=== PATIENT | female | born 1990 | race Caucasian/White ===

== ENCOUNTER 2019-01-15 12:11 | Outpatient (CLI) | payer MEDICAID ==
[~2019-01-15] VITALS: Ht 162.6 cm; Wt 57.4 kg
[~2019-01-15 12:11] MED LIST: FLUO20CA38 PO; LAMO100T83 PO; PREN-6 PO
[2019-01-15 12:29] VITALS: BP 111/54; PULSE 71; Ht 162.6 cm; Wt 57.4 kg
[2019-01-15] MEDS ORDERED: LACTATED RINGER'S 1,000 ML IV SCH (13:30)
--- NOTE | 2019-01-15 14:11 | PN ---
Triage Information Date/Time 01/15/19 Reason for visit: Abd/pelvic pain Weeks of Gestation 24w2w /Para Diabetes: none Hypertention: none Additional information no other subjective symptoms Objective Vital Signs Date Temp Pulse Resp B/P (MAP) Pulse Ox O2 O2 Flow FiO2 Time Delivery Rate 01/15/19 97.8 71 111/54 12:29 (73) Contractions: None Results/Medications Results 24 hrs Laboratory Tests Test 01/15/19 12:20 Urine Color JENNIFER Urine Clarity TURBID A Urine pH 6.0 Urine Specific [place] 1.024 Urine Ketones TRACE A Urine Nitrite NEGATIVE Urine Bilirubin NEGATIVE Urine Urobilinogen 1+ H Urine Leukocyte Esterase 2+ H Urine Microscopic RBC 41 H Urine Microscopic WBC 35 H Urine Squamous Epithelial Cells MANY A Urine Bacteria FEW A Urine Mucus FEW A Urine Hemoglobin 2+ H Urine Glucose NEGATIVE Urine Total Protein 3+ H Medications Current Medications Lactated Ringer's 1,000 ml @ 250 mls/hr Q4H IV Last administered on 01/15/19at 13:20; Admin Dose 250 MLS/HR; Start 01/15/19 at 13:30 Imaging Results CVL 3.3 COURTNEY 18 Disposition: Discharge Assessment/Plan A IUP 22w4d abdominal pain ( ligament pain) UTI P discharge home Rx macrobid BID #20 increase fluid intake avoid sudden movement or heavy lifting BILL COATES MD Jan 15, 2019 14:11
[2019-01-15] MEDS ORDERED: SOD CHLORIDE 0.9% 1,000 ML IV SCH (14:30)
[2019-01-15] MEDS ORDERED: CEFTRIAXONE 1 GM/50 ML (PMX) 50 ML IVPB ONE (14:30)
--- NOTE | 2019-01-15 15:13 | TRIAGE ---
OB Triage Datetime Report Generated by CPN: 01/15/2019 15:13 Datetime: 01/15/2019 14:55 Heart Rate FHR Baseline Rate: 135 Monitor Mode: External US Comments: x 1 minute Datetime: 01/15/2019 14:54 Stage of : OB Triage Datetime: 01/15/2019 14:31 Labor Evaluation Frequency: 0 Monitor Mode: External Pattern: Normal: <= 5 Contractions in 10 Minutes Resting Tone [place]: Relaxed Comments: REMOVED DUE TO GESTATIONAL AGE Pain Assessment Pain Scale: 0 Pain Presence: None/Denies Pain Type: N/A Pain Goal: 3 Pain Relief Measures: Comfort Measures Datetime: 01/15/2019 13:48 Stage of : OB Triage Datetime: 01/15/2019 13:30 Labor Evaluation Frequency: 0 Monitor Mode: External Pattern: Normal: <= 5 Contractions in 10 Minutes Resting Tone [place]: Relaxed Comments: REMOVED DUE TO GESTATIONAL AGE Pain Assessment Pain Scale: 0 Pain Presence: None/Denies Pain Type: N/A Pain Goal: 3 Pain Relief Measures: Comfort Measures Datetime: 01/15/2019 13:07 Stage of : OB Triage Datetime: 01/15/2019 12:41 Stage of : OB Triage Datetime: 01/15/2019 12:26 Stage of : OB Triage Assessment Type: Triage Maternal Assessment Level of Consciousness: Fully Conscious DTR's/Clonus: DTRs 2+; No Clonus Headache: Denies Blurred Vision: No Respiratory Effort: Unlabored; Regular Rhythm; Equal Expansion Breath Sounds, Left: Clear and Equal Breath Sounds, Right: Clear and Equal Nausea/Vomiting: Denies RUQ Epigastric Pain: Denies Facial Edema: None Temperature Route: Axillary Fall Risk Assessment History of Falling: (0) No Secondary Diagnosis: (0) No Ambulatory Aid: (0) Bedrest/Nurse Assist IV Therapy: (0) No Gait: (0) Normal/Bedrest/Immobile Labor Evaluation Frequency: 0 Monitor Mode: External Pattern: Normal: <= 5 Contractions in 10 Minutes Resting Tone [place]: Relaxed Heart Rate FHR Baseline Rate: 135 Monitor Mode: External US Variability: Moderate 6-25 bpm Decelerations: None Category: Category I Pain Assessment Pain Scale: 5 Pain Presence: Intermittent Pain Type: Cramping Pain Location: Abdomen Pain Goal: 3 Pain Relief Measures: Comfort Measures Datetime: 01/15/2019 12:23 Time of Arrival: 01/15/2019 12:05 EGA: 24.2 Arrived By: Ambulatory Arrived From: Home Chief Complaint: C/O ABDOMINAL PAIN X 5 DAYS AGO THAT IS INTERMITTENT, DENIES BLEEDING OR LEAKING Movement: Present Contractions: Denies/Absent Rupture of Membranes: Denies Vaginal Bleeding: None Vaginal Discharge: Denies Recent Sexual Intercouse: Denies Abdominal Trauma: Not Applicable Patient Complaints: Cramping Time Provider Notified: 01/15/2019 12:40 Provider Notified: NIDIA Initial Plan: MONITOR, COURTNEY, CL, U/A C_S, IV HYDRATION Datetime: 11/02/2018 20:09 EGA: 13.5 Datetime: 11/02/2018 20:05 Fall Score: 0 Fall Risk Score Definition: No Risk: No action required
== END 2019-01-15 15:15 | disposition home or self-care (01) ==
LOC: OBT 12:11 → L-D 12:11 → OBT 15:15
PROVIDERS: ATTEND Obstetrics & Gynecology
DX: O23.42 Unspecified infection of urinary tract in pregnancy, second trimester (principal); O26.892 Other specified pregnancy related conditions, second trimester; R10.9 Unspecified abdominal pain; Z3A.24 24 weeks gestation of pregnancy
CPT/HCPCS: 36415; 76815; 76817; 81001; 87086; J0696; J7030; J7120; Z7500; G0463

== ENCOUNTER 2019-05-08 11:57 | Inpatient (IN) | payer OTHER ==
[~2019-05-08] VITALS: Ht 162.6 cm; Wt 66.8 kg
[2019-05-08 11:59] VITALS: Ht 162.6 cm; Wt 66.8 kg
[2019-05-08 12:09] VITALS: BP 145/81; PULSE 70; RESP 18
[2019-05-08] MEDS ORDERED: AMPICILLIN 2 GM/NS (PMX) 100 ML IV ONE (12:30)
[2019-05-08] MEDS ORDERED: MISOPROSTOL 200 MCG TAB PR PRN (12:30)
[2019-05-08] MEDS ORDERED: BUTORPHANOL 2 MG INJ IV PRN (12:30)
[2019-05-08] MEDS ORDERED: OXYTOCIN 30 UNITS/LR 500 ML IV PRN (12:30)
[2019-05-08] MEDS ORDERED: LIDOCAINE 1% (MPF) 30 ML INJ INJ PRN (12:30)
[2019-05-08] MEDS ORDERED: LACTATED RINGER'S 500 ML IV SCH (12:30)
[2019-05-08] MEDS ORDERED: IBUPROFEN 600 MG TAB PO PRN (12:30)
[2019-05-08] MEDS ORDERED: OXYTOCIN 30 UNITS/LR 500 ML IV SCH ×3 (12:30→22:30)
[2019-05-08] MEDS ORDERED: CARBOPROST 250 MCG INJ IM PRN (12:30)
[2019-05-08] MEDS ORDERED: METHYLERGONOVINE 0.2 MG INJ IM PRN (12:30)
[2019-05-08] MEDS ORDERED: FENTAnyl 2MCG/ML-ROPIV 0.2% 100 ML ONE (13:10)
[2019-05-08] MEDS ORDERED: LACTATED RINGER'S 1,000 ML IV SCH ×2 (13:28→14:30)
--- NOTE | 2019-05-08 13:55 | PREAC ---
Date/Time of Note Date/Time of Note DATE: 05/08/19 TIME: 13:53 Anesthesia Eval and Record Evaluation Time Pre-Procedure Interview DATE: 05/08/19 TIME: 13:53 Age 28 Sex female NPO: 8 hrs Preoperative diagnosis Labor Pain Planned procedure Labor Epidural Past Medical History Past Medical History: Includes Heme: Anemia : : (2), Para: (0), Gestational age: (39) Surgery & Anesthesia Issues No known issue Meds Anticoagulation: No Beta Cortez within 24 hr: No Reason Beta Cortez not given: Pt. not on B-Cortez Reported Medications Lamotrigine* (Lamictal*) 100 Mg Tablet, 100 MG PO BID, TAB 11/02/18 Fluoxetine Hcl* (Prozac*) 20 Mg Capsule, 20 MG PO BID, CAP 11/02/18 Vits #93-Iron Fum-FA ( Formula) 1 Each Tablet, 1 TAB PO DAILY, TAB 11/02/18 Current Medications Ampicillin 50 ml @ 100 mls/hr Q4H IV ; Start 05/08/19 at 16:30 Butorphanol Tartrate (Stadol) 2 mg Q2H PRN IV .PAIN SCALE 6-10; Start 05/08/19 at 12:30 Lidocaine (Xylocaine 1% (Mpf)) 30 ml ONCE PRN INJ .EPISIOTOMY; Start 05/08/19 at 12:30 Oxytocin/Lactated Ringer's 500 ml @ 500 mls/hr ONCE POST IV ; Start 05/08/19 at 12:30 Oxytocin/Lactated Ringer's 500 ml @ 125 mls/hr POST IV ; Start 05/08/19 at 12:30 Ibuprofen (Motrin) 600 mg ONCE PRN PO .PAIN 1-5; Start 05/08/19 at 12:30 Oxytocin/Lactated Ringer's 500 ml @ 0 mls/hr ONCE PRN IV .VAGINAL BLEEDING; Start 05/08/19 at 12:30 Methylergonovine Maleate (Methergine) 0.2 mg ONCE PRN IM .VAGINAL BLEEDING; Start 05/08/19 at 12:30 Carboprost Tromethamine (Hemabate) 250 mcg ONCE PRN IM .VAGINAL BLEEDING; Start 05/08/19 at 12:30 Misoprostol (Cytotec) 1,000 mcg ONCE PRN [place] .VAGINAL BLEEDING; Start 05/08/19 at 12:30 Lactated Ringer's 500 ml @ 125 mls/hr Q4H IV Last administered on 05/08/19at 13: 28; Admin Dose 125 MLS/HR; Start 05/08/19 at 12:30 Meds reviewed: Yes Allergies Coded Allergies: No Known Allergy (Unverified , 05/08/19) Allergies Reviewed: Yes Labs/Studies Labs Reviewed: Reviewed by anesthesiologist Result Diagram: 05/08/19 1215 05/08/19 1215 Laboratory Tests 05/08/19 12:15 Blood Bank Test 05/08/19 12:15 Antibody Screen NEGATIVE Blood Type B POSITIVE Rh Immune Globulin Candidate NO test: Positive Studies: ECG (n/a), CXR (n/a) Pre-procedure Exam Last vitals Vital Signs Date Temp Pulse Resp B/P (MAP) Pulse Ox O2 O2 Flow FiO2 Time Delivery Rate 05/08/19 97.5 70 18 145/81 Room Air 12:09 (102) Airway: Adequate mouth opening, Adequate thyromental dist Mallampati: Mallampati II Teeth: Normal Lung: Normal Heart: Normal ASA Physical Status ASA physical status: 2 Emergency: None Planned Anesthetic Neuraxial: Epidural Planned Pain Management Epidural Pre-operative Attestations Prior to commencing anesthesia and surgery, the patient was re-evaluated, there was verification of: *The patient's identity *The results of appropriate recent lab work and preoperative vital signs *The above evaluation not changing prior to induction *Anesthetic plan, risk benefits, alternative and complications discussed with patient/family; questions answered; patient/family understands, accepts and wishes to proceed. NICOL KAPOOR MD May 08, 2019 13:55
[2019-05-08] MEDS ORDERED: NALOXONE (0.4 MG/ML) INJ IV PRN (14:00)
--- NOTE | 2019-05-08 14:01 | PAC ---
Date/Time of Note Date/Time of Note DATE: 05/08/19 TIME: 14:01 Post-Anesthesia Notes Post-Anesthesia Note Last documented vital signs Vital Signs Date Temp Pulse Resp B/P (MAP) Pulse Ox O2 O2 Flow FiO2 Time Delivery Rate 05/08/19 97.5 70 18 145/81 100 Room Air 13:09 (102) Activity: WNL Respiratory function: WNL Cardiovascular function: WNL Mental status: Baseline Pain reasonably controlled: Yes Hydration appropriate: Yes Nausea/Vomiting absent: Yes NICOL KAPOOR MD May 08, 2019 14:01
[2019-05-08] MEDS ORDERED: MAGNESIUM SULFATE 4 GM/100 ML 100 ML IV SCH (16:30)
[2019-05-08] MEDS ORDERED: CA GLUCONATE (GM) 10% 10ML INJ IV PRN (16:30)
[2019-05-08] MEDS ORDERED: ONDANSETRON 4 MG INJ ONE (16:31)
[2019-05-08] MEDS ORDERED: MAGNESIUM SULFATE 4 GM/100 ML 100 ML ONE (16:31)
[2019-05-08] MEDS: ONDANSETRON 4 MG INJ IV PRN ×2 (16:39→22:14)
[2019-05-08] MEDS: MAGNESIUM SULFATE 20 GM/500 ML 500 ML IV SCH (17:08)
[2019-05-08] MEDS: AMPICILLIN 1 GM/NS (PMX) 50 ML IV SCH ×2 (17:48→21:16)
[2019-05-08] MEDS: FENTAnyl 2MCG/ML-ROPIV 0.2% 100 ML BAG EPI SCH (18:59)
[2019-05-08] MEDS ORDERED: MINERAL OIL LIGHT 10 ML VIAL TOP ONE (21:00)
[2019-05-08] MEDS ORDERED: ACETAMINOPHEN 1000MG/100ML IV 100 ML IVPB ONE (22:30)
[2019-05-08] MEDS ORDERED: METOCLOPRAMIDE 10 MG INJ IV PRN (23:00)
[2019-05-08] MEDS ORDERED: PROMETHAZINE 12.5 MG SUPP PR PRN (23:00)
[2019-05-09] MEDS: FENTAnyl 2MCG/ML-ROPIV 0.2% 100 ML BAG EPI SCH (00:27)
[2019-05-09] MEDS: AMPICILLIN 1 GM/NS (PMX) 50 ML IV SCH (01:30)
[2019-05-09] MEDS ORDERED: CEFAZOLIN 2 GM/50 ML (PMX) 50 ML IVPB ONE (03:00)
[2019-05-09] MEDS ORDERED: LACTATED RINGER'S 1,000 ML IV* SCH (03:38)
[2019-05-09] MEDS ORDERED: OXYTOCIN 30 UNITS/LR 500 ML IV SCH (03:38)
--- NOTE | 2019-05-09 03:38 | HP ---
Date/Time of Note Date/Time of Note DATE: 05/09/19 TIME: 03:32 OB - History Hx of Present Free Text/Dictation 28-year-old 2 para 0 at 40 weeks and 4 days of gestation with estimated date of delivery May 05, 2019 Patient presents in active labor with regular contractions She reports positive movement, denies vaginal bleeding or leaking fluid GBS status is positive Medical history significant for the depression and history of opioids addiction Estimated Due Date: May 05, 2019 : 2 Para: 0 Care: Good Care Obstetrical Complications: None Medical Complications: None Past Family/Social History * Past Medical, Surgical, Family and Obstetric Histories reviewed from chart. OB Admission Exam Vital Signs Vital Signs Vital Signs Date Temp Pulse Resp B/P (MAP) Pulse Ox O2 O2 Flow FiO2 Time Delivery Rate 05/08/19 97.5 70 18 145/81 Room Air 12:09 (102) Physical Exam HEENT: WNL Heart: Rhythm Normal Lungs: Clear, Equal Abdomen: WNL Extremities: Normal Reflexes: Normal Cervical Dilatation: 3cm Effacement: 100% Station: -1 Membranes: Intact Heart Rate: 140's Accelerations: Accelerations Present Decelerations: No Decelerations Varibility: Moderate Contractions on Admission: < 5 Minutes Apart Intensity: Moderate Last 72 hours Lab Results CBC & BMP 05/08/19 12:15 Liver Function Test 05/08/19 12:15 Alanine Aminotransferase (ALT/SGPT) 23 Albumin 2.9 L Alkaline Phosphatase 237 H Aspartate Amino Transf (AST/SGOT) 41 Direct Bilirubin 0.00 Total Protein 6.2 Magnesium Level Test 05/08/19 17:42 05/09/19 00:45 Magnesium Level 4.1 H 7.8 #*H PROCEDURE: US OB. CLINICAL INDICATION: Size and dates , labor pain TECHNIQUE: Multiple sonographic images of the pelvis and gravid uterus were obtained. The images were reviewed on a PACS workstation. COMPARISON: No prior studies are available for comparison. FINDINGS: Gestation: Single live intrauterine gestation. Cardiac activity: 131 beats per minute. Presentation: Vertex. Placenta: Location: Fundal Appearance: No previa or abruption. Measurements: Head measurements not obtained due to position . AC = 32.7 cm, 36 weeks and 4 days FL = 7.3 cm, 37 weeks and 3 days Gestational Age: AUA estimated gestational age: 37 weeks 0 days LMP estimated gestational age: 40 weeks 3 days AUA estimated date of delivery: 05/29/19 The EFW = 3093 g, 10.1%ile based on LMP age. RPTAT: AA IMPRESSION: Single live intrauterine gestation of 37 weeks 0 days by ultrasound criteria. Smaller than clinical age by approximately 3 weeks. However limited measurement due to position. .Josh Guerra MD, MD Date Time Electronically viewed and signed by .Josh Guerra MD, MD on 05/08/2019 2 2:45 .S/ CC: ALEN DIAZ MD [phone] OB Assessment/Plan Reason for admission: active labor Plan: Expectant Management Other plan: Admit to labor and delivery Antibiotics for GBS prophylaxis Pain meds as needed Copies To: CC: BC JACOB MD ; ALEN DIAZ MD May 09, 2019 03:38
--- NOTE | 2019-05-09 03:41 | LDN ---
Date/Time of Note Date/Time of Note DATE: 05/09/19 TIME: 03:39 Delivery Summary Weeks of Gestation Full-term Placenta Delivered: Spontaneously Meconium: Thick Episiotomy: Yes Laceration repair: Medial episiotomy repaired with 2-0 Vicryl suture Anesthesia type: Epidural Estimated blood loss: 100 Sponge & Needle done & correct: Yes All needle counts correct: Yes Any foreign bodies felt in the: No Delivery Information Sex Sex: female Apgars 1 Minute: 8 5 Minute: 9 Suctioning Nose & mouth suctioned at beatris: Yes Delee suction performed: Yes Umbilical Cord Umbilical cord with: 3 Vessels Cord presentations: no nuchal cord Cord Blood was obtained: Yes Mother & Baby Disposition Disposition Baby's weight 6 pounds 7 ounces/ 2910 g Mom & Baby to Maternity; Good: Yes Baby to NICU: No Copies To: CC: BC JACOB MD ; ALEN DIAZ MD May 09, 2019 03:41
[2019-05-09] MEDS ORDERED: METHYLERGONOVINE 0.2 MG INJ IM PRN (04:00)
[2019-05-09] MEDS ORDERED: ONDANSETRON 4 MG INJ IV PRN (04:00)
[2019-05-09] MEDS ORDERED: BENZOCAINE 20% 56 ML SPRAY TOP PRN (04:00)
[2019-05-09] MEDS ORDERED: MAGNESIUM HYDROXIDE 30ML CUP PO PRN (04:00)
[2019-05-09] MEDS ORDERED: WITCH HAZEL/GLYCERIN PAD PR PRN (04:00)
[2019-05-09] MEDS ORDERED: CARBOPROST 250 MCG INJ IM PRN (04:00)
[2019-05-09] MEDS ORDERED: OXYTOCIN 30 UNITS/LR 500 ML IV PRN (04:00)
[2019-05-09] MEDS ORDERED: DIBUCAINE 1% 30 GM OINT TOP PRN (04:00)
[2019-05-09] MEDS ORDERED: ACETAMINOPHEN 325 MG TAB PO PRN ×2 (04:00)
[2019-05-09] MEDS ORDERED: SENNA/DOCUSATE NA (8.6MG/50MG) TAB PO PRN (04:00)
[2019-05-09] MEDS ORDERED: LANOLIN HPA 1 PKT TOP PRN (04:00)
[2019-05-09] MEDS ORDERED: MISOPROSTOL 200 MCG TAB PR PRN (04:00)
[2019-05-09] MEDS ORDERED: HYDROCODONE/APAP (5/325) TAB PO ONE (04:30)
[2019-05-09] MEDS ORDERED: LABETALOL HCL 20MG INJ IV PRN ×2 (05:00→05:20)
[2019-05-09 06:00] VITALS: BP 130/74; PULSE 78; RESP 20
[2019-05-09] MEDS: MAGNESIUM SULFATE 20 GM/500 ML 500 ML IV SCH (06:00)
[2019-05-09 08:00] VITALS: BP 137/81; PULSE 94
[2019-05-09] MEDS: DOCUSATE SODIUM 100 MG CAP PO SCH ×2 (08:54→20:34)
--- NOTE | 2019-05-09 09:24 | QN ---
Documentation Comment doing well vss abd soft pt will take Prozac from home d/c home tomorrow BC JACOB MD May 09, 2019 09:24
--- NOTE | 2019-05-09 09:25 | DS ---
Date/Time of Note Date/Time of Note DATE: 05/09/19 TIME: 09:24 Discharge Summary Admission/Discharge Info Admit Date/Time May 08, 2019 at 11:57 Discharge Date/Time term preg Patient Condition: Stable Hospital Course unremarkable Home Meds Reported Medications Lamotrigine* (Lamictal*) 100 Mg Tablet, 100 MG PO BID, TAB 11/02/18 Fluoxetine Hcl* (Prozac*) 20 Mg Capsule, 20 MG PO BID, CAP 11/02/18 Vits #93-Iron Fum-FA ( Formula) 1 Each Tablet, 1 TAB PO DAILY, TAB 11/02/18 Primary Care Provider Care Physician No Primary Pending Labs Laboratory Tests Test 05/08/19 12:15 05/08/19 13:22 05/08/19 17:42 05/09/19 00:45 White Blood 9.8 Count 10^3/ul (4.8-10 .8) Red Blood 3.80 Count 10^6/ul (4.20-5 .40) Hemoglobin 11.5 g/dl (12.0-16.0 ) Hematocrit 34.5 % (37.0-47.0) Mean 90.8 Corpuscular fl (82.0-101.0) Volume Mean 30.3 Corpuscular pg (29.0-33.0) Hemoglobin Mean 33.3 Corpuscular g/dl (32.0-37.0 Hemoglobin Conc ) ent Red Cell 13.3 Distribution % (11.5-14.5) Width Platelet Count 152 10^3/UL (140-41 5) Mean Platelet 12.5 Volume fl (7.4-10.4) Immature 1.400 Granulocytes % % (0.001-0.429) Neutrophils % 79.5 % (39.0-77.0) Lymphocytes % 12.8 % (15.0-51.0) Monocytes % 5.9 % (0.0-11.0) Eosinophils % 0.1 % (0.0-7.0) Basophils % 0.3 % (0.0-2.0) Nucleated Red 0.0 Blood Cells % /100WBC (0.0-0. 0) Immature 0.140 Granulocytes # 10^3/ul (0.0-0. 031) Neutrophils # 7.8 10^3/ul (1.6-7. 5) Lymphocytes # 1.3 10^3/ul (0.8-2. 9) Monocytes # 0.6 10^3/ul (0.3-0. 9) Eosinophils # 0.0 10^3/ul (0.0-0. 5) Basophils # 0.0 10^3/ul (0.0-0. 1) Nucleated Red 0.0 Blood Cells # 10^3/ul (0.0-0. 0) Prothrombin 10.3 Time Sec (11.9-14.9) Prothrombin 0.8 Time Ratio INR 0.72 International Normalized Rati o Activated 24.7 Partial Thrombo Sec (23.0-35.0) plast Time Sodium Level 138 mmol/L (135-144 ) Potassium 4.1 Level mmol/L (3.5-5.1 ) Chloride Level 108 mmol/L (97-110) Carbon Dioxide 23 Level mmol/L (21-31) Anion Gap 7 (5-13) Blood Urea 25 mg/dl (7-20) Nitrogen Creatinine 0.80 mg/dl (0.44-1.0 0) Est Glomerular > 60 Filtrat mL/min (>60) Rate mL/min Glucose Level 90 mg/dl (70-220) Uric Acid 6.0 mg/dl (3.1-7.9) Calcium Level 8.8 mg/dl (8.4-10.2 ) Total 0.3 Bilirubin mg/dl (0.2-1.3) Direct 0.00 Bilirubin mg/dl (0.00-0.2 0) Indirect 0.3 Bilirubin mg/dl (0-1.1) Aspartate Amino 41 IU/L (15-46) Transf (AST/SGO T) Alanine 23 IU/L (13-69) Aminotransferas e (ALT/SGPT) Alkaline 237 Phosphatase IU/L (42-121) Total Protein 6.2 g/dl (6.1-8.1) Albumin 2.9 g/dl (3.3-4.9) Globulin 3.30 g/dl (1.3-3.2) Albumin/Globuli 0.87 n Ratio Rapid Plasma NONREACTIVE (NR Reagin ) Hepatitis B NEGATIVE (NEGAT Surface AMPARO) Antigen HIV (1&2) NEGATIVE (NEGAT Antibody AMPARO) Urine Color YELLOW (YELLOW ) Urine Clarity CLEAR (CLEAR) Urine pH 8.0 (5.0-9.0) Urine Specific 1.017 (1.003-1 [place] .030) Urine Ketones TRACE mg/dL (NEGATIV E) Urine Nitrite NEGATIVE mg/dL (NEGATIV E) Urine NEGATIVE Bilirubin mg/dL (NEGATIV E) Urine NEGATIVE Urobilinogen mg/dL (NEGATIV E) Urine Leukocyte NEGATIVE Solomon/u Esterase l Urine 24 /HPF (0-5) Microscopic RBC Urine 2 /HPF (0-5) Microscopic WBC Urine Bacteria FEW /HPF (NONE SEEN) Urine 1+ Hemoglobin mg/dL (NEGATIV E) Urine Glucose NEGATIVE mg/dL (NEGATIV E) Urine Total 3+ Protein mg/dl (NEGATIV E) Urine Opiates NEGATIVE (NEGA Screen TIVE) Urine NEGATIVE (NEGA Barbiturates TIVE) Urine NEGATIVE (NEGA Amphetamines TIVE) Screen Urine NEGATIVE (NEGA Benzodiazepines TIVE) Screen Urine Cocaine NEGATIVE (NEGA Screen TIVE) Urine POSITIVE (NEGA Cannabinoids TIVE) Magnesium 4.1 7.8 Level mg/dl (1.7-2.5 mg/dl (1.7-2.5 ) ) Test 05/09/19 06:02 Magnesium 5.9 Level mg/dl (1.7-2.5) Hepatitis C NEGATIVE (NEGAT Antibody AMPARO) BC JACOB MD May 09, 2019 09:25
[2019-05-09] MEDS ORDERED: CEFAZOLIN 2 GM/50 ML (PMX) 50 ML IVPB SCH (11:00)
[2019-05-09] MEDS: CEPHALEXIN 500 MG CAP PO SCH ×3 (11:30→23:51)
[2019-05-09] MEDS: IBUPROFEN 600 MG TAB PO PRN ×3 (11:33→23:47)
[2019-05-09 16:00] VITALS: BP 122/76; PULSE 79; RESP 18
[2019-05-09 19:45] VITALS: BP 120/72; PULSE 75; RESP 19
[2019-05-10] VITALS: BP 118/76; PULSE 71; RESP 19
[2019-05-10 04:00] VITALS: BP 132/73; PULSE 71; RESP 19
[2019-05-10] MEDS: CEPHALEXIN 500 MG CAP PO SCH ×3 (05:29→17:02)
[2019-05-10 08:00] VITALS: BP 114/65; PULSE 62; RESP 18
[2019-05-10] MEDS: DOCUSATE SODIUM 100 MG CAP PO SCH (08:26)
[2019-05-10] MEDS: IBUPROFEN 600 MG TAB PO PRN ×2 (12:16→17:03)
[2019-05-10] MEDS ORDERED: DIPHTH/TET/ACEL PERTUSS (ADULT) 0.5 ML VIAL IM* ONE (15:00)
[2019-05-10 16:00] VITALS: BP 138/60; PULSE 72; RESP 18
--- NOTE | 2019-05-11 17:36 | DELSUM ---
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 Babies in Womb: 1 Attempted: No Labor Anesthesia: Epidural LABOR INFORMATION Reason for Induction: Not Applicable Onset of Labor: 05/08/2019 08:00 Complete Dilatation: 05/08/2019 23:35 Group B Beta Strep: Positive Antibiotics # of Doses: 4 Antibiotics Time of Last Dose: 05/09/2019 01:30 Steroids Given: None Reason Steroids Not Administered: Not Applicable MEMBRANES Membranes Rupture Method: Spontaneous Rupture of Membranes: 05/08/2019 10:00 Length of Rupture (hr): 16.63 Amniotic Fluid Color: Light Meconium Amniotic Fluid Amount: Large Amniotic Fluid Odor: Normal STAGES OF LABOR Stage 1 hr: 15 Stage 1 min: 35 Stage 2 hr: 3 Stage 2 min: 3 Stage 3 hr: 0 Stage 3 min: 5 Total Time in Labor hr: 18 Total Time in Labor min: 43 VAGINAL DELIVERY Episiotomy: Median Laceration Extension: N/A Laceration Type: None Laceration Repair: Yes Initial Vag Sponge Count: 10 Final Vag Sponge Count: 10 Initial Vag Sharps Count: 1 Final Vag Sharps Count: 3 Sponge Count Correct: Yes Sharps Count Correct: Yes BABY A INFORMATION Infant Delivery Date/Time: 05/09/2019 02:38 Method of Delivery: Vaginal Born in Route : No : N/A Forceps: N/A Vacuum Extraction: N/A Shoulder Dystocia : No SHOULDER DYSTOCIA BABY A Delivery Date/Time: 05/09/2019 02:38 PRESENTATION/POSITION BABY A Presentation: Cephalic Cephalic Presentation: Vertex Vertex Position: Left Occipital Anterior Breech Presentation: N/A PLACENTA INFORMATION BABY A Placenta Delivery Time : 05/09/2019 02:43 Placenta Method of Delivery: Manual Removal Placenta Status: Delivered SCORES BABY A Heart Rate 1 min: >100 bpm Resp Effort 1 min: Good Cry Reflex Irritability 1 min: Cough/Sneeze/Pulls Away Muscle Tone 1 min: Active Motion Color 1 min: Blue/Pale SCORE 1 MIN: 8 Heart Rate 5 min: >100 bpm Resp Effort 5 min: Good Cry Reflex Irritability 5 min: Cough/Sneeze/Pulls Away Muscle Tone 5 min: Active Motion Color 5 min: Body [place], Extremit Blue Resuscitation Effort 5 min: Tactile Stimulation SCORE 5 MIN: 9 INFORMATION BABY A Gestational Age at Delivery: 40.4 Gestational Status: Full Term- 39- 40.6 Weeks Infant Outcome : Liveborn, with signs of life Infant Condition : Stable Sex: Female IDENTIFICATION/MEDS BABY A ID Band Number: [id number] ID Band Location: Right Leg; Left Arm Sensor Applied: Yes Sensor Number: [id number] Sensor Location : Cord Clamp Vitamin K Given : Not Given Erythromycin Given: Not Given WEIGHT/LENGTH BABY A Infant Birthweight (gm): 2910 Weight (lb): 6 Infant Weight (oz): 7 Infant Length (in): 18.00 Length (cm): 45.72 CORD INFORMATION BABY A No. Cord Vessels: 3 Nuchal Cord : N/A Cord Blood Taken: Yes Suction: Mouth; Nose; Pharynx ASSESSMENT BABY A Infant Complications: Meconium Physical Findings at Delivery: Molding of the Head Infant Respirations: Appears Normal Pump Tester/ALS Called : No Care By: Dwain ISLAS Transferred To: Remains with Mother
== END 2019-05-10 17:36 | disposition home or self-care (01) | DRG 807 ==
LOC: L-D 11:57 → PP1 05-09 05:18
PROVIDERS: ADMIT Obstetrics & Gynecology; ATTEND Obstetrics & Gynecology
PROC: 10E0XZZ Delivery of Products of Conception, External Approach (ICD-10-PCS; principal; 2019-05-09)
PROC: 0W8NXZZ Division of Female Perineum, External Approach (ICD-10-PCS; 2019-05-09)
DX: O48.0 Post-term pregnancy (principal); Z37.0 Single live birth; Z3A.40 40 weeks gestation of pregnancy
CPT/HCPCS: 62322; 76815; 80053; 80307; 81001; 83735; 84560; 85025; 85610; 85730; 86592; 86703; 86803; 86850; 86900; 86901; 87340; 88307; 90715; 99464; J0131; J0290; J0690; J2405; J2590; J2765; J3010; J3475; J7120